=== PATIENT | female | born 1985 | race Caucasian/White ===

== ENCOUNTER 2021-12-07 19:31 | Emergency (ER) | payer OTHER, SELFPAY ==
[2021-12-07 19:44] VITALS: BP 153/97; PULSE 76; RESP 18; TEMP 37.1; O2SAT 99
--- NOTE | 2021-12-07 19:46 | ED.GENADULT ---
HPI - General Adult General Chief complaint: Extremity Injury, Lower Stated complaint: lt leg pain Source: patient Mode of arrival: ambulatory Limitations: no limitations History of Present Illness HPI narrative: Patient is a 36 y/o CF who presents to the [facility] via POV for evaluation of left calf pain that began approximately 1 week ago. Additionally, she reports pain worsens with sitting to sitting too long. Nothing improves pain. Patient reports taking Motrin a few hours prior to arrival which has not been helpful. No relief with elevation. She states her leg feels swollen and heavy . 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 She is concerned she may have a DVT prompting today's visit. Denies hx of smoking, blood clot disorders, recent bed rest or hospitalizations, paralysis, recent injury/surgery, cancer/chemotherapy, IBS, family hx of dvt, recent long plane/car travel, , hormone therapy/ control. Of note, patient had Covid last month. Related Data Home Medications Medication Instructions Recorded Confirmed doxycycline hyclate 50 mg capsule 50 mg PO BID cap 03/31/20 10/10/21 Allergies Allergy/AdvReac Type Severity Reaction Status Date / Time Sulfa (Sulfonamide Allergy Unknown rash Verified 12/07/21 19:50 Antibiotics) Review of Systems Review of Systems: Pertinent negatives: Injury, fever, chills, sweats, change in appetite, poor p.o. intake, malaise, calf tenderness, skin color changes, rash, warmth, swelling, numbness, tingling, loss of sensation, deformity, decreased range of motion, weakness, difficulty with ambulation/coordination, nausea, vomiting, lymphadenopathy, shortness of breath, chest pain, heart palpitations, and heart murmur. [facility] Past Medical History Medical History (Updated 12/07/21 @ 20:07 by MAJO Moreno, BC) Dyslipidemia Impaired fasting glucose Iron deficiency Obesity Obesity Vaccine counseling Family History Family History Mother Family history of gastrointestinal disorder Mother Family history of thyroid disease Grandparent Diabetes mellitus Family history of glaucoma Hypertension Family history of arthritis Carcinoma of colon Family history of Alzheimer's disease Social History Social History Second hand tobacco smoke exposure: Yes Alcohol intake: current Alcohol use details: occasionally Substance use: never Substance use type: does not use Comments I have reviewed and agree with the patient's past medical, surgical, social, and family hx as documented by the RN. There is no relevant family history pertinent to the presenting complaint. Exam Narrative: GENERAL: Well-appearing, well-nourished, and in no acute distress. HEAD: Normocephalic, atraumatic. NECK: Supple. No Lymphadenopathy or nuchal rigidity appreciated. CHEST: Bilateral lung springer are clear to auscultation. No respiratory distress. No evidence of cough or pleuritic cp upon examination. HEART: Regular rate and rhythm. No murmur, gallop, or rub heard. EXTREMITIES: Mild pain palpated to left calf. No evidence of injury, decreased ROM, swelling, cyanosis, hematoma, laceration, abrasion, deformity, rash, or puncture. No evidence of pain with active/passive ROM. No evidence of dislocation, ligament laxity, effusion, or pain at rest. Pulses palpable at 2+, strength 5/5, and cap refill < 3 seconds in affected extremity. DTRs normal. Gait normal. Negative Bita's SKIN: Warm, dry, no rash. NEURO: No focal deficits. Alert and oriented x3. SPECIAL OBSERVATIONS: Smiling. Laughing. No evidence of discomfort. C/O of of proportion to exam. Eating XXX. Running around. Tolerates food/fluids. Course Course Emergency Course: The patient/guardian displays adequate decision making capability and despite
== END 2021-12-07 19:50 | disposition short-term general hospital (02) ==
PROVIDERS: Emergency Provider Nurse Practitioner Family; PCP Internal Medicine
DX: M79.662 Pain in left lower leg (principal); E78.5 Hyperlipidemia, unspecified; E66.9 Obesity, unspecified; Z68.43 Body mass index [BMI] 50.0-59.9, adult
CPT/HCPCS: 99212; G0463

== ENCOUNTER 2021-12-07 20:16 | Emergency (ER) | payer OTHER, SELFPAY ==
[2021-12-07 20:42] VITALS: BP 146/94; PULSE 84; RESP 18; TEMP 36.9; O2SAT 98
[2021-12-07 21:11] VITALS: PULSE 83; RESP 16; O2SAT 99
--- NOTE | 2021-12-07 21:34 | ED.EXTPRO ---
HPI - Extremity Problem General Chief complaint: Extremity Problem,Nontraumatic Stated complaint: Left leg pain, r/o dvt, sent from Time Seen by Provider: 12/07/21 21:10 History of Present Illness HPI Narrative: Patient reports a gradual onset of left calf pain over 1 week. States pain is beginning to radiate into her knee and up into her hip. Patient denies history of blood clots coagulopathies, injury or trauma. Denies control use. Denies shortness of breath difficulty breathing. Related Data Home Medications Medication Instructions Recorded Confirmed doxycycline hyclate 50 mg capsule 50 mg PO BID cap 03/31/20 12/07/21 Allergies Allergy/AdvReac Type Severity Reaction Status Date / Time Sulfa (Sulfonamide Allergy Unknown rash Verified 12/07/21 19:50 Antibiotics) Review of Systems Review of Systems: CONSTITUTIONAL: Denies fever, chills, or sweats. EYES: Denies visual changes, redness, or discharge. ENT: Denies rhinorrhea, congestion, sore throat, or otalgia. CARDIOVASCULAR: Denies chest pain, palpitations, or edema. RESPIRATORY: Denies cough or dyspnea. GASTROINTESTINAL: Denies abdominal pain, nausea, vomiting, or diarrhea. GENITOURINARY: Denies dysuria or hematuria. SKIN: Denies rash or itching. MUSCULOSKELETAL: Denies back pain, joint pain, or myalgia. Left ryan pain NEUROLOGIC: Denies headache, numbness, dizziness, or weakness. PSYCHIATRIC: Denies anxiety or depression. PMFSH Past Medical History Medical History Dyslipidemia Impaired fasting glucose Iron deficiency Obesity Obesity Vaccine counseling Family History Family History Mother Family history of gastrointestinal disorder Mother Family history of thyroid disease Grandparent Diabetes mellitus Family history of glaucoma Hypertension Family history of arthritis Carcinoma of colon Family history of Alzheimer's disease Social History Social History Second hand tobacco smoke exposure: Yes Alcohol intake: current Alcohol use details: occasionally Substance use: never Substance use type: does not use Exam Narrative: GENERAL: Well-appearing, well-nourished, and in no acute distress. HEAD: Normocephalic, atraumatic. EYES: PERRLA and EOMI. ENT: Nares clear, no rhinorrhea or epistaxis. Mucous membranes moist. Oropharynx without tonsillar hypertrophy exudate or other lesions. Bilateral TMs pearly dickson nonbulging NECK: Supple. No adenopathy or masses. No carotid bruits or JVD CHEST: Clear to auscultation. No respiratory distress. No wheezes rales or rhonchi HEART: Regular rate and rhythm. No murmur heard. Normal peripheral pulses. ABDOMEN: Soft, nontender, nondistended, normal active bowel sounds. EXTREMITIES: Normal range of motion. No edema. RLE: Positive tenderness to palpation to left calf. No ecchymosis or cyanosis noted to the left lower extremity. posterior tibial pulse +2. Negative Homans' sign. No acute bony abnormality. SKIN: Warm, dry, no rash. NEURO: No focal deficits. Alert and oriented x3. PSYCH: Normal mood and affect. Course Course Emergency Course: 28-year-old female presenting with left calf pain status post 1 week. CBC CMP D-dimer well within normal limits. Exam was negative for possible DVT. Homans' sign was negative. Will discharge patient with instructions for calf strain. Vital Signs Vital signs: Vital Signs Temperature 36.9 C 12/07/21 20:42 Pulse Rate 84 12/07/21 20:42 Respiratory Rate 18 12/07/21 20:42 Blood Pressure 146/94 H 12/07/21 20:42 Pulse Oximetry 98 12/07/21 20:42 Temperature 36.9 C 12/07/21 20:42 Pulse Rate 83 12/07/21 21:11 Respiratory Rate 16 12/07/21 21:11 Blood Pressure 146/94 H 12/07/21 20:42 Pulse Oximetry 99 12/07/21 21:11 MDM - Extremity (Nontraumatic)
[2021-12-07 22:05] LABS: Basophils Percent Auto 0.3 % (0.2-1.2); Eosinophils Absolute Auto 0.3 K/mm3 (0-0.3); Eosinophils Percent Auto 2.6 % (0-4.4); Hematocrit 39.9 % (37.0-47.0); Hemoglobin 12.7 g/dL (12.0-15.0); Immature Granulocyte Absolute 0.06 K/mm3 (0.00-0.031); Immature Granulocyte Percent A 0.5 % (0-0.5); Lymphocytes Absolute Auto 3.63 K/mm3 (0.9-3.2); Lymphocytes Percent Auto 29.4 % (18.3-44.2); Mean Corpuscular HGB Conc 31.8 g/dl (32-36); Mean Corpuscular Hemoglobin 26.9 pg (26-34); Mean Corpuscular Volume 84.5 fl (80-100); Mean Platelet Volume 10.1 fl (7.4-10.4); Monocytes Absolute Auto 0.9 K/mm3 (0.1-0.6); Monocytes Percent Auto 7.4 % (2.6-8.5); Neutrophils Absolute Auto 7.4 K/mm3 (1.3-6.7); Neutrophils Percent Auto 59.8 % (45.5-73.1); Platelet Count Result 296 k/mm3 (150-375); Red Blood Count 4.72 M/mm3 (4.2-5.4); Red Cell Distribution Width 13.8 % (11.5-14.5); White Blood Count 12.3 K/mm3 (4.5-10.0)
[2021-12-07 22:15] LABS: Alanine Aminotransferase 46 U/L (4-35); Albumin Level 4.4 g/dL (3.5-5.1); Alkaline Phosphatase 112 U/L (38-126); Anion Gap 8 mmol/L (8-16); Aspartate Amino Transferase 34 U/L (14-36); Bilirubin,Total 0.4 mg/dL (0.2-1.3); Blood Urea Nitrogen 13 mg/dL (7-17); Calcium 9.5 mg/dL (8.4-10.2); Carbon Dioxide 25 mmol/L (22-30); Chloride 104 mmol/L (98-107); Estimated CRCL calculation 128 ml/min; Estimated Glomerular Filt Rate > 60; Glucose 126 mg/dL (65-110); Sodium 137 mmol/L (137-145)
[2021-12-07 22:27] LABS: D Dimer 0.27 ug/mL (<0.48)
[2021-12-07 22:50] VITALS: BP 133/90; PULSE 70; RESP 16; O2SAT 98
== END 2021-12-07 22:51 | disposition home or self-care (01) ==
PROVIDERS: Emergency Provider Nurse Practitioner Family; PCP Internal Medicine
DX: S86.812A Strain of other muscle(s) and tendon(s) at lower leg level, left leg, initial encounter (principal); E78.5 Hyperlipidemia, unspecified; E61.1 Iron deficiency; E66.9 Obesity, unspecified; Z68.43 Body mass index [BMI] 50.0-59.9, adult; Z77.22 Contact with and (suspected) exposure to environmental tobacco smoke (acute) (chronic); X58.XXXA Exposure to other specified factors, initial encounter
CPT/HCPCS: 36415; 80053; 85025; 85380; 99283

== ENCOUNTER 2021-12-11 11:17 | Outpatient (CLI) | payer OTHER, SELFPAY ==
--- NOTE | ~2021-12-11 | US_ITS ---
EXAMINATION: US venous doppler [facility] EXAM DATE: 12/11/2021 11:43 INDICATION: M79.669 - Pain in unspecified lower leg TECHNIQUE: Multiple grayscale, color flow and Doppler images of the left lower extremity deep venous system were obtained and reviewed. There is no prior study for comparison. FINDINGS: The left common femoral, femoral and profunda veins demonstrate normal color flow, respirat ory variation, augmentation and compressibility. Compressibility, color flow confirmed within the le ft popliteal, posterior tibial, peroneal, and greater saphenous veins. IMPRESSION: 1. No left lower extremity deep venous thrombosis. Reviewed, dictated and finalized at location A. CAD ELECTRICAL DESIGNER
== END 2021-12-11 11:18 | disposition home or self-care (01) ==
PROVIDERS: PCP Internal Medicine; Visit Provider Internal Medicine
DX: M79.669 Pain in unspecified lower leg (principal); I83.93 Asymptomatic varicose veins of bilateral lower extremities
CPT/HCPCS: 93971

== ENCOUNTER 2022-10-28 15:01 | Outpatient (CLI) | payer OTHER, SELFPAY ==
--- NOTE | ~2022-10-28 | XR_ITS ---
EXAMINATION: XR lumbar spine 2-3V, XR hip BI 2V w AP pelvis DATE: 10/28/2022 15:32 INDICATION: Low back pain and bilateral hip pain, right greater than left after moving boxes. TECHNIQUE: 1. Anteroposterior and lateral views of the lumbar spine, and cone-down lateral view of the lumbosacr al junction were obtained. 2. Anteroposterior view of the pelvis and anteroposterior and frog-leg lateral views of both the left hip and right hip were obtained. COMPARISON: None. FINDINGS: Lumbar spine: Bilateral hypoplastic riblets at a transitional thoracolumbar segment which for purposes of this repo rt will be designated T12 with 5 more caudal nonrib-bearing lumbar segments L1-L5. Alignment is asiya l. Vertebral body heights are normal. Mild disc height loss at L4-L5 and L5-S1. Moderate to severe bi lateral facet osteoarthritis at L4-L5 and L5-S1 greatest with prominent hypertrophic changes on the r ight at L4-L5. Rim calcified gallstone in the right upper quadrant. Pelvis and bilateral hips: Alignment is normal. No fracture or suspected avascular necrosis. Mild bilateral hip and sacroiliac o steoarthritis. Soft tissues are unremarkable. IMPRESSION: 1. Mild lumbar spondylosis with moderate to severe lower lumbar facet osteoarthritis. 2. Mild bilateral hip and sacroiliac osteoarthritis. 3. Cholelithiasis. Reviewed, dictated and finalized at location A. R IMPRESSION: 1. Mild lumbar spondylosis with moderate to severe lower lumbar facet osteoarth ritis. 2. Mild bilateral hip and sacroiliac osteoarthritis. 3. Cholelithiasis.
== END 2022-10-28 15:02 | disposition home or self-care (01) ==
PROVIDERS: PCP Internal Medicine; Visit Provider Internal Medicine
DX: K80.20 Calculus of gallbladder without cholecystitis without obstruction (principal); M16.0 Bilateral primary osteoarthritis of hip; M53.3 Sacrococcygeal disorders, not elsewhere classified; M47.896 Other spondylosis, lumbar region; M51.36 Other intervertebral disc degeneration, lumbar region
CPT/HCPCS: 72100; 73521

== ENCOUNTER 2022-11-14 13:26 | Outpatient (CLI) | payer OTHER, SELFPAY ==
--- NOTE | ~2022-11-14 | MR_ITS ---
EXAMINATION: MR lumbar spine wo con DATE: 11/14/2022 14:24 INDICATION: Low back pain with sciatica TECHNIQUE: Magnetic resonance imaging (MRI) of the lumbar spine was performed without intravenous con trast. Sequences included sagittal T2-weighted FSE, sagittal T2-weighted FS FSE, sagittal T1-weighted FSE, and axial T2-weighted FSE. COMPARISON: None FINDINGS: Alignment is normal. Vertebral body heights are normal. Diffuse red marrow reexpansion with patchy re gions of fatty oh marrow sparing in the lower lumbar spine and sacrum. Mild disc height loss and mild disc desiccation at L4-L5 and L5-S1. The conus medullaris terminates at T12-L1. There is normal sign al in the caudal spinal cord. Paravertebral soft tissues are unremarkable. The following disc levels are specifically discussed: T12-L1: The disc does not extend beyond the endplate margin. There is mild bilateral facet joint oste oarthritis. There is no neural foraminal stenosis. There is no central canal stenosis. L1-L2: Disc is minimally bulging. There is mild bilateral facet joint osteoarthritis. There is no tanmay ral foraminal stenosis. There is no central canal stenosis. L2-L3: Disc is minimally bulging. There is mild left and mild to moderate right facet joint osteoarth ritis. There is minimal bilateral neural foraminal stenosis. There is no central canal stenosis. L3-L4: Disc is mildly bulging. There is mild bilateral facet joint osteoarthritis. There is minimal b ilateral neural foraminal stenosis. There is no central canal stenosis. L4-L5: Annular fissure and small left foraminal zone disc protrusion There is mild to moderate left a nd moderate to severe right facet joint osteoarthritis. There is mild bilateral neural foraminal sten osis. There is no central canal stenosis. L5-S1: Left foraminal zone disc osteophyte complex. There is minimal left and mild to moderate right facet joint osteoarthritis. There is moderate left and minimal right neural foraminal stenosis. There is no central canal stenosis. IMPRESSION: 1. Minimal upper and mild lower lumbar spondylosis. Reviewed, dictated and finalized at location L. CREAM SCOOPER
== END 2022-11-14 13:27 | disposition home or self-care (01) ==
PROVIDERS: PCP Internal Medicine; Visit Provider Internal Medicine
DX: M47.26 Other spondylosis with radiculopathy, lumbar region (principal)
CPT/HCPCS: 72148

== ENCOUNTER → 2023-10-11 08:12 | Outpatient (CLI) | payer BC, SELFPAY ==
--- NOTE | ~2023-10-11 | MM_ITS ---
EXAMINATION: MM screening sadi BI w fatoumata HISTORY: Screening mammogram TECHNIQUE: Craniocaudal and mediolateral oblique 3-D tomosynthesis images were obtained and synthetic 2-D images were generated. CAD analysis was submitted and interpreted. COMPARISON: No prior mammogram is available for comparison at this institution. BREAST PARENCHYMAL COMPOSITION: The breasts are almost entirely fatty. FINDINGS: There is no evidence of suspicious mass, calcification, or architectural distortion to sugg est malignancy in either breast. IMPRESSION: 1. No mammographic evidence of malignancy. 2. Recommend routine screening mammography in one year. BI-RADS Category 1: Negative Reviewed, dictated and finalized at location A. L BUFFER
== END ==
PROVIDERS: PCP Advanced Practice Midwife; Visit Provider Advanced Practice Midwife
DX: Z12.31 Encounter for screening mammogram for malignant neoplasm of breast (principal)
CPT/HCPCS: 77063; 77067

== ENCOUNTER 2024-05-25 08:32 | Outpatient (CLI) | payer OTHER, SELFPAY ==
--- NOTE | ~2024-05-25 | XR_ITS ---
EXAMINATION: XR UGIAC w barium swallow DATE: 05/25/2024 09:23 INDICATION: Dysphagia, unspecified. TECHNIQUE: The patient drank thick barium, gas-producing crystals, and thin barium. Fluoroscopy of th e esophagus, stomach, and proximal small bowel was performed. Fluoroscopy exposure time was 0.6 minut es. The total number of images was 182. Total dose-area product was 2.624 Gy-cm^2. COMPARISON: None. FINDINGS: There is no mass or stricture of the esophagus. Esophageal motility is normal. There is no hiatal hernia. There was no gastroesophageal reflux with provocative maneuvers. There is food in the stomach. The patient reports eating last evening at 6:00 PM. This finding is consistent with delayed gastric emptying. IMPRESSION: 1. Delayed gastric emptying. Note that the patient takes Mounjaro, which can cause delayed gastric em ptying. Reviewed, dictated and finalized at location A. IMPRESSION: 1. Delayed gastric emptying. Note that the patient takes Mounjaro, which can ca use delayed gastric emptying.
== END 2024-05-25 08:33 | disposition home or self-care (01) ==
PROVIDERS: PCP Family Medicine; Visit Provider Family Medicine
DX: R13.10 Dysphagia, unspecified (principal); K30 Functional dyspepsia
CPT/HCPCS: 74246

== ENCOUNTER 2024-06-30 08:18 | Outpatient (CLI) | payer OTHER, SELFPAY ==
--- NOTE | ~2024-06-30 | XR_ITS ---
EXAMINATION: XR barium swallow modified DATE: 06/30/2024 09:23 INDICATION: Dysphagia, unspecified. TECHNIQUE: The patient was given barium-containing material of multiple consistencies to swallow by t shekhar speech pathologist while I performed fluoroscopy. Fluoroscopy exposure time was 0.7 minutes. The n umber of fluoroscopy images saved to the PACS was 1. Dose-area product was 0.6 Gy-cm^2. FINDINGS: There is trace laryngeal penetration with thin liquids. IMPRESSION: 1. Trace laryngeal penetration with thin liquids. 2. Please refer to the speech therapy report for recommendations. Reviewed, dictated and finalized at location A.
--- NOTE | 2024-06-30 10:31 | REHSTMBS ---
Assessment and note entered by Delores Lomax, GROUP RESERVATIONS COORDINATOR Modified Barium Swallow Evaluation Feeding Type Recommended Oral Food Consistency Regular, Level 7 Liquid Consistency Thin (0) ST Clinical Summary MODIFIED BARIUM SWALLOW STUDY (MBS) This patient was seen for a Modified Barium Swallow at the request of her physician. Patient reports that she had not been having swallowing difficulty until the last several months. She stated that she has been on Monjaro for weight loss for about one year and has lost 50 pounds but she also knows it encourages slow digestion and a feeling of fullness. Patient stated that she had an upper GI study for acid reflux which was negative but she knows she has had a feeling of acid returning to her mouth on at least one occasion. Currently she described her swallowing issue as a feeling that she has to swallow hard and has to think about swallowing. She did not complain of coughing or choking when eating but that she does feel that food may hang up in the throat requiring extra effort to clear from the throat. The patient was viewed in the lateral position to the level of C5/C6. Patient was presented with thin liquid per cup and also per straw and she inconsistently was observed to inconsistently coat the epiglottis during the swallows of both types of presentations of thin liquid with no residue remaining on the epiglottis or in the airway at the completion of any of these swallows. She exhibited efficient triggering of swallows, adequate movement of material through the pharynx, and no pharyngeal residue at the completion of the swallows. Results suggest swallowing skills are grossly within normal limits with inconsistent trace, epiglottal coating at the entrance of the airway during swallows of thin liquids, clearing with swallows and no issues noted with semi-solid to solid material. Patient may remain on a regular diet and liquids. She was instructed in the use of head flexion to assist with improved clearing of the pharynx; she
== END 2024-06-30 08:19 | disposition home or self-care (01) ==
PROVIDERS: PCP Family Medicine; Visit Provider Nurse Practitioner
DX: R13.12 Dysphagia, oropharyngeal phase (principal)
CPT/HCPCS: 92611

== ENCOUNTER 2024-07-09 03:04 | Day surgery (SDC) | payer OTHER, SELFPAY ==
[2024-06-29 09:04] VITALS: BMI 40.4
[2024-07-09] MEDS: LACTATED RINGERS 1,000 ML 150 ML IV CONT (13:03)
[2024-07-09 13:08] VITALS: BP 142/93; PULSE 63; RESP 18; TEMP 36.6; O2SAT 100
--- NOTE | 2024-07-09 13:12 | WPDANESEPPF ---
Anes - Initial Pre Proc Eval Procedure: Operation Date: 07/09/24 14:00 Proposed Procedures p Esophagogastroduodenoscopy - Jayjay Smart MD Date/Time: 07/09/24 13:12 Surgeon: Jayjay Smart MD Pre Op Diagnosis: dysphagia Patient Data Age: 39 Gender: F Height: 1.63 m Weight: 104.4 kg Last Vital Signs Temp 36.6 C 07/09/24 13:08 Pulse 63 07/09/24 13:08 Resp 18 07/09/24 13:08 BP 142/93 H 07/09/24 13:08 Pulse Ox 100 07/09/24 13:08 O2 Del Method Room Air 07/09/24 13:08 Allergies Allergy/AdvReac Type Severity Reaction Status Date / Time Sulfa (Sulfonamide Allergy Unknown rash Verified 07/09/24 13:03 Antibiotics) Home Medications Medication Instructions Recorded Confirmed Type cetirizine 10 mg tablet (Allergy 10 mg PO DAILY #90 tabs 06/27/20 07/09/24 Rx Relief (cetirizine)) omega 4-ucf-deo-fish oil 300 1 cap PO DAILY 01/16/22 07/09/24 History mg-1,000 mg capsule,delayed release (Fish Oil) doxycycline hyclate 50 mg capsule 20 mg PO BID 08/01/22 07/09/24 History ibuprofen 600 mg tablet 600 mg PO BID PRN pain #60 tabs 02/25/23 07/09/24 Rx ferrous sulfate 325 mg (65 mg 325 mg PO DAILY #90 tabs 11/17/23 07/09/24 Rx iron) tablet atorvastatin 20 mg tablet See Rx Instructions .Route 02/23/24 07/09/24 Rx .COMPLEX #90 tabs fluticasone propionate 50 2 spray intranasal DAILY #54.6 mL 02/23/24 07/09/24 Rx mcg/actuation nasal spray,suspension (Flonase Allergy Relief) levothyroxine 150 mcg tablet 150 mcg PO DAILY #90 tabs 02/23/24 07/09/24 Rx spironolactone 25 mg tablet 25 mg PO DAILY #90 tabs 02/23/24 07/09/24 Rx metformin 500 mg tablet 500 mg PO BID #180 tabs 03/22/24 07/09/24 Rx tirzepatide 10 mg/0.5 mL 10 mg (0.5 mL) subcut WEEKLY #2 mL 03/23/24 07/09/24 Rx subcutaneous pen injector (Mounjaro) montelukast 10 mg tablet See Rx Instructions .Route 05/31/24 07/09/24 Rx .COMPLEX #90 tabs omeprazole 40 mg capsule,delayed 40 mg PO DAILY #30 caps 06/10/24 07/09/24 Rx release gabapentin 100 mg capsule See Rx Instructions .Route 06/14/24 07/09/24 Rx .COMPLEX #30 caps Patient hx anesthesia problems: none Family hx anesthesia problems: none Results Review: All pre-operative results and documents have been reviewed as part of the pre-operative evaluation. [facility] Past Medical History Medical History Allergic rhinitis Calf pain DM type 2 (diabetes mellitus, type 2) Dyslipidemia Hypertension Impaired fasting glucose Iron deficiency Muscle strain Obesity Obesity [place] Vaccine counseling Family History Family History Mother Family history of gastrointestinal disorder Mother Family history of thyroid disease Grandparent Diabetes mellitus Family history of glaucoma Hypertension Family history of arthritis Carcinoma of colon Family history of Alzheimer's disease Social History Social History Smoking status: Never smoker Second hand tobacco smoke exposure: Yes Alcohol intake: never Alcohol use details: occasionally Substance use: never Substance use type: does not use Lack of Transportation: No Lack of Food: Never True Current Housing: I Have Housing Concerned About Future Housing: No Difficulty Paying Gas/Electric Bills: No Difficulty Paying for Meds: No Currently Unemployed: No Education: Bachelor's Degree Difficulty w/ Childcare or Family Care: No Living arrangements: with family Spiritual care concerns: No Anes - Eval Final PreProcedure Day of Procedure 07/09/24 13:12 Patient weight: obese Heart: regular rate and rhythm Lungs: clear to auscultation Airway: Mallampati scale class II Neurological: alert and oriented Last oral intake: >/= 8 hours ASA classification: III Emergent: no
[2024-07-09 13:13] LABS: BEDSIDEPREGUCG Negative (Negative)
[2024-07-09 13:15] LABS: Glucose Point of Care 96 mg/dl (65-105)
--- NOTE | 2024-07-09 13:16 | WPDHPUPDATE1 ---
History and Physical Update Update Date/Time: 07/09/24 13:16 History and Physical has been reviewed, including an updated exam of the patient. There are NO changes in the patient's condition. Risks, benefits, and alternatives have been discussed and questions answered. Patient agrees to proceed with procedure.
[2024-07-09 13:24] VITALS: BP 135/69; PULSE 78; RESP 16; O2SAT 100
[2024-07-09 13:34] VITALS: BP 117/62; PULSE 68; RESP 14; O2SAT 100
[2024-07-09 13:44] VITALS: BP 135/77; PULSE 61; RESP 22; O2SAT 100
== END 2024-07-09 13:52 | disposition home or self-care (01) ==
PROVIDERS: Anesthesiology; PCP Family Medicine; Referring Provider Nurse Practitioner; Visit Provider Internal Medicine Gastroenterology
PROC: 0DJ08ZZ Inspection of Upper Intestinal Tract, Via Natural or Artificial Opening Endoscopic (ICD-10-PCS; CPT 43235; principal; 2024-07-09 14:00)
DX: K29.50 Unspecified chronic gastritis without bleeding (principal); E03.9 Hypothyroidism, unspecified; E78.5 Hyperlipidemia, unspecified; I10 Essential (primary) hypertension; E61.1 Iron deficiency; E11.9 Type 2 diabetes mellitus without complications; E66.9 Obesity, unspecified; Z68.39 Body mass index [BMI] 39.0-39.9, adult; Z79.1 Long term (current) use of non-steroidal anti-inflammatories (NSAID); Z79.84 Long term (current) use of oral hypoglycemic drugs; Z79.85 Long-term (current) use of injectable non-insulin antidiabetic drugs; Z80.0 Family history of malignant neoplasm of digestive organs
CPT/HCPCS: 43239; 82948; 88305; J2704; J7120

== ENCOUNTER 2024-11-20 08:08 | Outpatient (CLI) | payer OTHER, SELFPAY ==
--- NOTE | ~2024-11-20 | MM_ITS ---
EXAMINATION: MM screening sadi BI w fatoumata HISTORY: Screening mammogram TECHNIQUE: Craniocaudal and mediolateral oblique 3-D tomosynthesis images were obtained and synthetic 2-D images were generated. CAD analysis was submitted and interpreted. COMPARISON: 10/11/2023 BREAST PARENCHYMAL COMPOSITION:Not Dense. There are scattered areas of fibroglandular density. FINDINGS: No suspicious mass, calcification, or architectural distortion are identified in either loyd ast to suggest malignancy. There has been no suspicious interval change. IMPRESSION: No mammographic evidence of malignancy. Recommend routine screening mammography in one year. BI-RADS Category 1: Negative Reviewed, dictated and finalized at location . MEN PLANT OPERATOR
== END 2024-11-20 08:09 | disposition home or self-care (01) ==
LOC: MICIMG 08:09
PROVIDERS: PCP Family Medicine; Visit Provider Nurse Practitioner
DX: Z12.31 Encounter for screening mammogram for malignant neoplasm of breast (principal)
CPT/HCPCS: 77063; 77067

== ENCOUNTER 2025-03-01 10:16 | Outpatient (CLI) | payer OTHER, SELFPAY ==
--- NOTE | ~2025-03-01 | CT_ITS ---
CT sinus wo con Ordering provider: Kimo Sullivan M.D. History: . J01.01 - Acute recurrent maxillary sinusitis . Comparison: February 07, 2006 Technique: Thin slice Scans CT of the paranasal sinuses was performed with coronal and sagittal refor matted images. No IV contrast. . Automated exposure control and iterative reconstruction technique w ere employed. The dose-length product was 261.43 mGy-cm. Findings: NASAL SEPTUM: Mild left nasal septal deviation. OSTEOMEATAL UNITS: Bilaterally patent. NASAL TURBINATES AND NASOPHARYNX: Normal. PARANASAL SINUSES: Well aerated. VISUALIZED MASTOIDS: Normal as visualized. BONES: Normal. SUPERFICIAL SOFT TISSUES/VISUALIZED BRAIN PARENCHYMA: Normal. IMPRESSION: Mild left nasal septal deviation. Other appearances are unremarkable Reviewed, dictated and finalized at location A.
== END 2025-03-01 10:17 | disposition home or self-care (01) ==
LOC: MICIMG 10:17
PROVIDERS: PCP Family Medicine; Visit Provider Otolaryngology
DX: J01.01 Acute recurrent maxillary sinusitis (principal); J34.2 Deviated nasal septum; R05.3 Chronic cough
CPT/HCPCS: 70486

== ENCOUNTER 2025-03-01 10:19 | Outpatient (CLI) | payer OTHER, SELFPAY ==
--- NOTE | ~2025-03-01 | US_ITS ---
LEFT LOWER EXTREMITY VENOUS ULTRASOUND Ordering provider: Julio Martin MD History: . M79.89 - Other specified soft tissue disorders . Comparison: None. FINDINGS: --COMMON FEMORAL: Patent and free of thrombus. Normal compressibility, phasic flow and augmentation. --PROXIMAL SUPERFICIAL FEMORAL: Patent and free of thrombus. Normal compressibility, phasic flow and augmentation. --DISTAL SUPERFICIAL FEMORAL: Patent and free of thrombus. Normal compressibility, phasic flow and au gmentation. --POPLITEAL: Patent and free of thrombus. Normal compressibility, phasic flow and augmentation. --POSTERIOR TIBIAL: Patent and free of thrombus. Normal compressibility, phasic flow and augmentation . IMPRESSION: Negative left lower extremity venous US. No deep vein thrombosis. Reviewed, dictated and finalized at location A.
== END 2025-03-01 10:20 | disposition home or self-care (01) ==
LOC: MICIMG 10:20
PROVIDERS: PCP Family Medicine; Visit Provider Family Medicine
DX: M79.89 Other specified soft tissue disorders (principal)
CPT/HCPCS: 93971

== ENCOUNTER 2025-03-09 11:29 | Outpatient (CLI) | payer OTHER, SELFPAY | END 2025-03-09 11:30 | disposition home or self-care (01) | PROVIDERS: PCP Family Medicine; Visit Provider Family Medicine | DX: M25.562 Pain in left knee (principal) | CPT/HCPCS: 73562 ==

== ENCOUNTER 2025-08-08 10:25 | Outpatient (CLI) | payer OTHER, SELFPAY ==
--- NOTE | ~2025-08-08 | MR_ITS ---
EXAMINATION: MR brain/brain stem wo/w con DATE: 08/08/2025 11:08 INDICATION: Dysphonia. TECHNIQUE: Magnetic resonance imaging (MRI) of the brain and brainstem was performed without and with 20 mL MultiHance intravenous contrast. COMPARISON: None. FINDINGS: There are 2 foci of increased T2-weighted signal intensity in the cerebral white matter, which is normal for the patient's age. There is no intracranial hemorrhage, acute infarction, or abnormal intracranial mass lesion. The ventricles are normal in size. The orbits are normal. The mastoid air cells are normal. The paranasal sinuses are clear. IMPRESSION: 1. Normal brain. Reviewed, dictated and finalized at location E. IMPRESSION: 1. Normal brain.
== END 2025-08-08 10:26 | disposition home or self-care (01) ==
LOC: MICIMG 10:26
PROVIDERS: PCP Family Medicine; Visit Provider Psychiatry & Neurology Neurology
DX: R49.0 Dysphonia (principal); R13.10 Dysphagia, unspecified
CPT/HCPCS: 70553; A9577

== ENCOUNTER 2025-09-20 09:37 | Outpatient (CLI) | payer OTHER, SELFPAY ==
--- NOTE | ~2025-09-20 | US_ITS ---
US thyroid INDICATION: Dysphagia TECHNIQUE: Real-time sonographic images of the thyroid gland were obtained. COMPARISON: No prior studies for comparison. FINDINGS: The right thyroid lobe measures 3.5 x 1 x 1.2 cm. The left thyroid lobe measures 3.9 x 1.3 x 1.1 cm. There is normal echotexture and echogenicity throughout the thyroid gland. In the right lobe there is a cluster of cysts measuring 9 x 5 x 5 mm. No suspicious masses are identified which meet sonographic criteria in either lobe. Normal vascular flow is present. IMPRESSION: 1. Cluster of benign-appearing cysts within the right lobe measuring 9 mm. Otherwise, unremarkable thyroid ultrasound. Reviewed, dictated and finalized at location I. [employer]ER IMPRESSION: 1. Cluster of benign-appearing cysts within the right lobe measuring 9 mm. Oth erwise, unremarkable thyroid ultrasound.
== END 2025-09-20 09:38 | disposition home or self-care (01) ==
LOC: MICIMG 09:38
PROVIDERS: PCP Family Medicine; Visit Provider Family Medicine
DX: J98.4 Other disorders of lung (principal)
CPT/HCPCS: 76536